=== PATIENT | male | born 1975 | race Two or more races ===

== ENCOUNTER 2018-04-29 13:03 | Emergency (ER) | payer MEDICAID ==
[~2018-04-29] VITALS: Ht 152.4 cm; Wt 49.9 kg
[2018-04-29 13:31] VITALS: BP 126/72
[2018-04-29] MEDS ORDERED: FLUORESCEIN SODIUM OPHTH 1 EA STRIP ONE (14:11)
[2018-04-29] MEDS ORDERED: TETRACAINE HCL/PF 0.5% UD 2 ML BOTTLE RIGHTEYE ONE (14:30)
[2018-04-29] MEDS ORDERED: TONO PEN in ED SUPPLY ONICELL 1 EA MC ONE (14:30)
[2018-04-29] MEDS ORDERED: FLUORESCEIN SODIUM OPHTH 1 EA STRIP OP ONE (14:30)
== END 2018-04-29 16:39 | disposition home or self-care (01) ==
LOC: ER 13:10 → EDSEX 13:10 → ER 16:39
DX: H53.131 Sudden visual loss, right eye (principal)
CPT/HCPCS: 99282; A4606; Z7610

== ENCOUNTER 2022-11-24 09:59 | Emergency (ER) | payer OTHER ==
[~2022-11-24] VITALS: Ht 160 cm; Wt 61.2 kg
[2022-11-24 10:08] VITALS: BP 126/75
--- NOTE | 2022-11-24 10:11 | NUR ---
The patient presented to ER for "Been having cough/chest congestion/fever x4-5days". In room air. Respiration regular and unlabored. Will continue to monitor the patient.
--- NOTE | 2022-11-24 10:30 | NUR ---
THE PATIENT REFUSED RAPID INFLUENZA AND COVID SWABS DESPITE EXPLAINING RISKS AND BENEFITS.
[2022-11-24] MEDS ORDERED: GUAIFENESIN/D-METHORPHAN HB 5 ML UDC PO ONE (11:00)
[2022-11-24] MEDS ORDERED: KETOROLAC TROMETHAMINE INJ 30 MG/ML VIAL IM ONE (11:00)
[2022-11-24] MEDS ORDERED: KETOROLAC TROMETHAMINE INJ 30 MG/ML VIAL ONE (11:11)
[2022-11-24] MEDS ORDERED: GUAIFENESIN/D-METHORPHAN HB 5 ML UDC ONE (11:12)
[2022-11-24] MEDS ORDERED: BENZ-13 PO (11:47)
[2022-11-24] MEDS ORDERED: AMOX-430 PO (11:47)
[2022-11-24] MEDS ORDERED: AZIT500T PO (11:47)
[2022-11-24] MEDS ORDERED: GUAI1TBM19 PO (11:47)
--- NOTE | 2022-11-24 11:57 | NUR ---
Patient discharged to home in stable condition. Written and verbal after care instructions given. Patient verbalizes understanding of instruction.
== END 2022-11-24 11:57 | disposition home or self-care (01) ==
LOC: ER 10:05
DX: J18.9 Pneumonia, unspecified organism (principal); Z79.899 Other long term (current) drug therapy
CPT/HCPCS: 99283; 71045; 96372; J1885

== ENCOUNTER 2022-11-24 18:59 | Emergency (ER) | payer OTHER ==
[~2022-11-24] VITALS: Ht 165.1 cm; Wt 68.0 kg
[~2022-11-24 18:59] MED LIST: AMOX-430 PO; AZIT500T PO; BENZ-13 PO; GUAI1TBM19 PO
[2022-11-24 19:06] VITALS: BP 130/55
--- NOTE | 2022-11-24 19:30 | NUR ---
CALLED AT TRIAGE, PATIENT IS NOT THERE
--- NOTE | 2022-11-24 19:45 | NUR ---
CALLED PATIENT, HE IS NOT IN THE WAITING ROOM
--- NOTE | 2022-11-24 20:05 | NUR ---
CALLED PATIENT WITH [facility]EREK[facility] VILLALTA AT WAITING ROOM. PATIENT IS NOT AROUND.
--- NOTE | 2022-11-24 20:14 | NUR ---
PATIENT LEFT AFTER TRIAGE
== END 2022-11-25 00:34 | disposition left against medical advice (07) ==
LOC: ER 11-25 00:17
DX: R05.9 Cough, unspecified (principal); R51.9 Headache, unspecified; R50.9 Fever, unspecified; M79.10 Myalgia, unspecified site; Z53.21 Procedure and treatment not carried out due to patient leaving prior to being seen by health care provider

== ENCOUNTER 2024-08-02 17:40 | Emergency (ER) | payer OTHER ==
[~2024-08-02] VITALS: Ht 160 cm; Wt 67.1 kg
[2024-08-02 17:58] VITALS: TEMP 98
[2024-08-02] MEDS ORDERED: METHOCARBAMOL (500MG) 500 MG TABLET ONE (18:47)
[2024-08-02] MEDS ORDERED: KETOROLAC TROMETHAMINE INJ 30 MG/ML VIAL ONE (18:47)
[2024-08-02] MEDS: METHOCARBAMOL (500MG) 500 MG TABLET PO ONE (18:53)
[2024-08-02] MEDS: KETOROLAC TROMETHAMINE INJ 30 MG/ML VIAL IM ONE (18:53)
[2024-08-02] MEDS ORDERED: METH-647 PO (20:32)
[2024-08-02] MEDS ORDERED: IBUP-1953 PO (20:32)
[2024-08-02 20:41] VITALS: BP 119/75; O2SAT 98
== END 2024-08-02 20:40 | disposition home or self-care (01) ==
LOC: ER 17:40
DX: G44.209 Tension-type headache, unspecified, not intractable (principal); M54.2 Cervicalgia
CPT/HCPCS: 99285; 72125; 96372; 70450; J1885